=== PATIENT | male | born 1995 | race Caucasian/White ===

== ENCOUNTER 2017-02-23 07:36 | Emergency (ER) | payer BC ==
[2017-02-23] MEDS ORDERED: Ketorolac Tromethamine 30 MG/ML VIAL ONE (08:54)
[2017-02-23] MEDS ORDERED: Dexamethasone 10 MG/ML VIAL ONE (08:54)
--- NOTE | 2017-02-23 09:24 | CT ---
CT OF THE SOFT TISSUES OF THE NECK WITH IV CONTRAST: Indication: Left tonsillar swelling. FINDINGS: There is a 3.0 x 2.6 cm left tonsillar abscess causing some mass effect on the left aspect of the femi pharynx without appreciable occlusion. There is appropriate opacification of the adjacent left caroti d vasculature. There are enlarged lymph nodes within the submandibular region. There are enlarged lym ph nodes within the left carotid chain. One of the largest lymph nodes is seen within the Level IIA l ocation measuring 1.2 cm on image 35 of series 2. Submandibular and parotid glands are normal appeari ng. The visualized aerodigestive tract is normal appearing. Thyroid gland is normal appearing. The trish ng apices are clear. The visualized paranasal sinuses are clear. Mastoid air cells are clear. No defi nite acute osseous abnormality is evident. IMPRESSION: 1. Large left tonsillar abscess. Recommend ENT consultation. 2. Likely reactive lymphadenopathy of the left neck. POS: [facility]
[2017-02-23] MEDS ORDERED: ISOVUE-370 76%-LOCM 1 ML ONE (09:38)
[2017-02-23 10:31] LABS: #Lymphocytes 1.5 thou/uL (1.20-3.40); #Monocytes 0.5 thou/uL (0.11-0.59); #Neutrophils 8.4 thou/uL (1.40-6.50); %Basophils 0.4 % (0.0-1.0); %Eosinophils 0.2 % (0.0-10.0); %Lymphocytes 13.9 % (28.0-48.0); %Monocytes 5.1 % (0.0-4.0); Hematocrit 41.6 % (42.0-52.0); Mean Platelet Volume 6.8 fL (7.4-10.4); Red Blood Cell (RBC) Count 4.73 mill/uL (4.00-5.20); White Blood Cell (WBC) Count 10.5 thou/uL (4.8-10.8)
[2017-02-23] MEDS ORDERED: Lidocaine 1% w/Epinephrine 1:200K 30 ML VIAL ONE (10:31)
[2017-02-23 10:58] LABS: ALT (SGPT) 45 U/L (8-55); AST (SGOT) 18 U/L (5-34); Alkaline Phosphatase 64 U/L (Less than 750); Anion Gap 13 mmol/L (10-20); BUN (Urea Nitrogen) 15 mg/dL (8.9-20.6); Bilirubin, Total 0.8 mg/dL (0.2-1.2); CK (CPK) 18 U/L (30-200); Calc. Creatinine Clearance 0 mL/min (70-130); Calcium 8.9 mg/dL (7.8-10.44); Carbon Dioxide 24 mmol/L (22-29); Chloride 103 mmol/L (98-107); Estimated GFR-MDRD Greater than 90; Globulin 3.5 g/dL (2.4-3.5); Protein, Total 7.4 g/dL (6.0-8.3)
== END 2017-02-23 14:03 | disposition home or self-care (01) ==
LOC: ERS 07:36
DX: J36 Peritonsillar abscess (principal)
CPT/HCPCS: 36415; 70491; 80053; 82550; 85025; 96361; 96374; 96375; J0696; J1100; J1885